=== PATIENT | female | born 1930 | race Asian ===

== ENCOUNTER 2018-03-29 09:04 | Inpatient (IN) | payer OTHER ==
[~2018-03-29 09:04] MED LIST: CEFAZOLIN 1 GM INJ; CEFAZOLIN 2 GM/50 ML (PMX) 50 ML IVPB; LIDOCAINE 2% (SDV) 5 ML INJ
[2018-03-29 10:38] LABS: ADD MAN DIFF? NO
[2018-03-29 10:48] LABS: EOSINOPHILS # 0.1 10^3/ul (0.0-0.5); EOSINOPHILS % 1.5 % (0.0-7.0); HEMATOCRIT 39.2 % (37.0-47.0); HEMOGLOBIN 12.9 g/dl (12.0-16.0); LYMPHOCYTES % 23.6 % (15.0-51.0); MEAN CORPUSCULAR HEMOGLOBIN 31.3 pg (29.0-33.0); MEAN CORPUSCULAR HGB CONC 32.9 g/dl (32.0-37.0); MEAN CORPUSCULAR VOLUME 95.1 fl (82.0-101.0); MONOCYTE # 0.4 10^3/ul (0.3-0.9); MONOCYTES % 9.5 % (0.0-11.0); NEUTROPHIL # 2.6 10^3/ul (1.6-7.5); NEUTROPHILS % 63.9 % (39.0-77.0); PLATELET COUNT 203 10^3/UL (140-415); RED BLOOD COUNT 4.12 10^6/ul (4.20-5.40); RED CELL DISTRIBUTION WIDTH 12.1 % (11.5-14.5)
[2018-03-29] MEDS ORDERED: PROPOFOL 20 ML (10:53)
[2018-03-29] MEDS ORDERED: FENTAnyl 50 MCG/ML VIAL (10:55)
[2018-03-29] MEDS ORDERED: ROCURONIUM 50 MG INJ (10:55)
[2018-03-29] MEDS ORDERED: LABETALOL HCL 20MG INJ IV (11:00)
[2018-03-29] MEDS ORDERED: hydrALAzine 20 MG INJ IV (11:00)
[2018-03-29] MEDS ORDERED: HYDROmorphONE (0.2 MG/ML) 10ML SYG IV (11:00)
[2018-03-29] MEDS ORDERED: MEPERIDINE 25 MG INJ IV (11:00)
[2018-03-29] MEDS ORDERED: EPHEDrine SULFATE 50 MG/5 ML SYG IV (11:00)
[2018-03-29] MEDS ORDERED: METOCLOPRAMIDE 10 MG INJ IV (11:00)
[2018-03-29] MEDS ORDERED: DIPHENHYDRAMINE 50 MG INJ IV (11:00)
[2018-03-29] MEDS ORDERED: OXYCODONE/ACETAMINOPHEN (5/325) TAB PO (11:00)
[2018-03-29] MEDS ORDERED: ALBUTEROL 0.083% (NEB) 2.5 MG/3 ML AMP HHN (11:00)
[2018-03-29] MEDS ORDERED: KETOROLAC 30 MG INJ IV (11:00)
[2018-03-29] MEDS ORDERED: FENTAnyl 50 MCG/ML VIAL IV ×3 (11:00)
[2018-03-29 11:04] LABS: ALANINE AMINOTRANSFERASE 15 IU/L (13-69); ALBUMIN/GLOBULIN RATIO 1.25; ALKALINE PHOSPHATASE 99 IU/L (42-121); ANION GAP 14 (8-16); ASPARTATE AMINO TRANSFERASE 24 IU/L (15-46); BILIRUBIN,INDIRECT 0.8 mg/dl (0-1.1); BILIRUBIN,TOTAL 0.8 mg/dl (0.2-1.3); CARBON DIOXIDE 28 mmol/L (21-31); CHLORIDE 109 mmol/L (97-110); GLUCOSE 96 mg/dl (70-220); TOTAL PROTEIN 7.2 g/dl (6.1-8.1)
[2018-03-29 11:08] LABS: POTASSIUM 4.1 mmol/L (3.5-5.1)
[2018-03-29 11:09] LABS: BLOOD UREA NITROGEN 21 mg/dl (7-20); CREATININE 1.04 mg/dl (0.44-1.00); SODIUM 147 mmol/L (135-144)
[2018-03-29 11:12] LABS: INR 1.03; PARTIAL THROMBOPLASTIN TIME 28.3 Sec (25.0-35.0); PROTIME 13.6 Sec (11.9-14.9); PT RATIO 1.1
[2018-03-29 11:29] LABS: HOLD TRANSMISSIONS 1
[2018-03-29] MEDS ORDERED: SUGAMMADEX SODIUM 200 MG/2 ML VIAL IV (11:43)
[2018-03-29] MEDS ORDERED: HYDROCODONE/APAP (7.5/325) TAB PO (12:00)
[2018-03-29] MEDS: HYDROmorphONE (0.2 MG/ML) 10ML SYG IV (12:50)
[2018-03-29] MEDS: ONDANSETRON 4 MG INJ IV (12:51)
[2018-03-29] MEDS: SOD CHLORIDE 0.9% 1,000 ML IV ×2 (14:59→19:20)
[2018-03-29] MEDS ORDERED: morphine 2 MG INJ IV (17:00)
[2018-03-29] MEDS: BENAZEPRIL 20 MG TAB PO (17:19)
[2018-03-29] MEDS: HYDROCODONE/APAP (5/325) TAB PO (21:12)
[2018-03-30] MEDS: SOD CHLORIDE 0.9% 1,000 ML IV (04:08)
[2018-03-30] MEDS: PANTOPRAZOLE (EC) 40 MG TAB PO (06:42)
[2018-03-30] MEDS: BENAZEPRIL 20 MG TAB PO (08:35)
[2018-03-30] MEDS ORDERED: NON-FORMULARY/PATIENT OWN MED (Omeprazole* 20 MG) PO (09:00)
== END 2018-03-30 13:45 | disposition home or self-care (01) | DRG 583 ==
LOC: SDS 09:04 → REC 14:01 → MS1 14:34
PROC: 0HBT0ZZ Excision of Right Breast, Open Approach (ICD-10-PCS; principal; 2018-03-29 11:11)
DX: C50.911 Malignant neoplasm of unspecified site of right female breast (principal); K21.9 Gastro-esophageal reflux disease without esophagitis; I10 Essential (primary) hypertension; I49.9 Cardiac arrhythmia, unspecified
CPT/HCPCS: 71045; 80053; 85025; 85610; 85730; 88307; 93005